=== PATIENT | male | born 1955 | race Caucasian/White ===

== ENCOUNTER 2020-10-04 14:24 | Emergency (ER) | payer MEDICAID, MEDICARE ==
[2020-10-04 14:44] LABS: BASE EXCESS ARTERIAL -1 mmol/L ((-2)-(+3)); BICARBONATE,ARTERIAL 22.5 mmol/L (22-26); O2 DELIVERY DEVICE ROOM AIR; O2 SATURATION ARTERIAL 91 % (95-100); PCO2 ARTERIAL 34 mmHg (35-45); PO2 ARTERIAL 68 mmHg (70-100)
[2020-10-04 14:45] LABS: ALLEN TEST PERFORMED
--- NOTE | 2020-10-04 14:46 | EDM.PDOC ---
ED HPI GENERAL MEDICAL PROBLEM - General Stated Complaint: CALL IN Time Seen by Provider: 10/04/20 14:40 Source of Information: Reports: Patient, Old Records, RN, RN Notes Reviewed History Limitations: Reports: No Limitations - History of Present Illness INITIAL COMMENTS - FREE TEXT/NARRATIVE: Patient presents to the ED via personal vehicle with complaints of shortness of breath. Chante the social science research assistant from [facility] called prior to the patient's arrival to notify the ED he was on his way via [facility] staff. Chante states he has not been taking his medications for about one week and is extremely "ill-a ppearing" to staff. Upon arrival to the ED the patient states he feel short of breath with a dull ache in his chest. He is unable to state how long he has felt short of breath or if he has taken any PRN medications for alleviation of this symptom. The patient is unable to state if he has had fever or shaking chills but notes "..I feel sweaty." He denies nausea and vomiting but does attest to diarrhea. He is oriented to person and place, he is disoriented to time and situation. - Related Data Allergies Allergy/AdvReac Type Severity Reaction Status Date / Time No Known Allergies Allergy Verified 05/10/15 09:12 Home Meds: Home Meds Acetaminophen [Acetaminophen ER] 650 mg PO Q8HR PRN 10/04/20 [History] Albuterol [Ventolin HFA] 2 puff INH Q6HR PRN 10/04/20 [History] Aspirin [Aspirin EC] 81 mg PO DAILY 10/04/20 [History] Benztropine [Cogentin] 0.5 mg PO BID 10/04/20 [History] Budesonide/Formoterol Fumarate [Symbicort 80-4.5 MCG] 2 puff INH BID 10/04/20 [History] Docusate Sodium 100 mg PO BID PRN 10/04/20 [History] Finasteride [Proscar] 5 mg PO DAILY 10/04/20 [History] Loratadine [Claritin] 10 mg PO ASDIRECTED PRN 10/04/20 [History] Meclizine [Antivert] 20 mg PO DAILY 10/04/20 [History] Multivitamin with Minerals [Multivitamins with Minerals] 1 each PO DAILY 10/04/20 [History] Omeprazole 20 mg PO DAILY 10/04/20 [History] QUEtiapine Fumarate [Seroquel] 150 mg PO BEDTIME 10/04/20 [History] Rosuvastatin [Crestor] 5 mg PO DAILY 10/04/20 [History] Sodium Chloride [Saline Mist] 1 applic NASBOTH ASDIRECTED PRN 10/04/20 [History] Tamsulosin [Tamsulosin 24 Hr] 0.4 mg PO BEDTIME 10/04/20 [History] Tiotropium [Spiriva HandiHaler] 18 mcg INH DAILY 10/04/20 [History] haloperidoL [Haldol] 15 mg PO BEDTIME 10/04/20 [History] Past Medical History - Past Health History Medical/Surgical History: Denies Medical/Surgical History Social & Family History - Caffeine Use Caffeine Use: Reports: Coffee, Soda ED ROS GENERAL - Review of Systems Review Of Systems: Comprehensive ROS is negative, except as noted in HPI. ED EXAM, GENERAL - Physical Exam Exam: See Below Exam Limited By: Altered Mental Status (Oriented to self and place, only) General Appearance: Alert, Moderate Distress, Thin Eye Exam: Bilateral Eye: EOMI, Normal Inspection, PERRL (3mm) Ears: Normal External Exam, Hearing Grossly Normal Nose: Nasal Tenderness, Clear Rhinorrhea. No: Nasal Swelling Throat/Mouth: Normal Inspection, Normal Voice, No Airway Compromise. No: Normal Oropharynx (Dry mucous membranes) Head: Atraumatic, Normocephalic Neck: Normal Inspection, Supple, Non-Tender, Full Range of Motion. No: Lymphadenopathy (L), Lymphadenopathy (R) Respiratory/Chest: Respiratory Distress, Rhonchi, Accessory Muscle Use. No: Wheezing Cardiovascular: No Edema, No Gallop, No JVD, No Murmur, No Rub, Tachycardia Peripheral Pulses: 1+: Dorsalis Pedis (L), Dorsalis Pedis (R), 2+: Radial (L), Radial (R) GI/Abdominal: Normal Bowel Sounds, Soft, Non-Tender, No Distention, No Mass, Pelvis Stable (Male) Exam: Deferred Rectal (Males) Exam: Deferred Back Exam: Normal Inspection, Full Range of Motion Extremities: Normal Inspection, Normal Range of Motion, No Pedal Edema, Normal Capillary Refill Neurological: Alert, Oriented, Slow to Respond Psychiatric: Depressed Mood, Flat Affect Skin Exam: Diaphoretic, Pallor. No: Ecchymosis, Erythema, Mottled, Petechiae #1 Interpretation EKG Date: 10/04/20 Time: 14:29 Rhythm: Other (Sinus Tachycardia) Rate (Beats/Min): 103 Florence: RAD-Right Florence Deviation P-Wave: Present QRS: Normal ST-T: Normal QT: Normal Comparison: No Change EKG Interpretation Comments: Sinus Tachycardia; RAD; No evidence of acute ischemia Course - Vital Signs Last Recorded V/S: Last Vital Signs Temp 98.1 F 10/04/20 14:40 Pulse 96 10/04/20 14:40 Resp 36 H 10/04/20 14:40 BP 143/74 H 10/04/20 14:40 Pulse Ox 89 L 10/04/20 14:40 - Orders/Labs/Meds Labs: Laboratory Tests 10/04/20 10/04/20 10/04/20 Range/Units 14:21 14:30 14:30 WBC 8.8 (5.0-10.0) 10^3/uL RBC 3.66 L (4.6-6.2) 10^6/uL Hgb 11.1 L D (14.0-18.0) g/dL Hct 33.0 L (40.0-54.0) % MCV 90.2 (80-100) fL MCH 30.3 (27.0-34.0) pg MCHC 33.6 (33.0-35.0) g/dL Plt Count 230 (150-450) 10^3/uL Neut % (Auto) 75.0 (42.2-75.2) % Lymph % (Auto) 11.8 L (20.5-50.1) % [place] % (Auto) 12.2 H (2-8) % Eos % (Auto) 0.9 L (1.0-3.0) % Baso % (Auto) 0.1 (0.0-1.0) % Add Manual Diff Yes Neutrophils % (Manual) 75 (42-75) % Band Neutrophils % 1 % Lymphocytes % (Manual) 16 L (20-50) % Monocytes % (Manual) 7 (2-8) % Eosinophils % (Manual) 1 (1-3) % D-Dimer, Quantitative 3610 H (0-400) ng/mL ABG pH (7.35-7.45) ABG pCO2 (35-45) mmHg ABG pO2 (70-100) mmHg ABG HCO3 (22-26) mmol/L ABG O2 Saturation (95-100) % ABG Base Excess ((-2)-(+3)) mmol/L Abdifatah Test O2 Delivery Device Sodium (136-145) mmol/L Potassium (3.5-5.1) mmol/L Chloride (98-107) mmol/L Carbon Dioxide (21-32) mmol/L Anion Gap (7-13) mEq/L BUN (7-18) mg/dL Creatinine (0.70-1.30) mg/dL Est Cr Clr Drug Dosing Estimated GFR (MDRD) BUN/Creatinine Ratio (No establ ref range) Glucose (74-99) mg/dL Lactic Acid (0.4-2.0) mmol/L Calcium (8.5-10.1) mg/dL Magnesium (1.8-2.4) mg/dL Total Bilirubin (0.2-1.0) mg/dL AST (15-37) U/L ALT (16-63) U/L Alkaline Phosphatase (46-116) U/L Troponin I (0.000-0.056) ng/mL B-Natriuretic Peptide (0-100) pg/ml Total Protein (6.4-8.2) g/dL Albumin (3.4-5.0) g/dL Globulin Albumin/Globulin Ratio Ethyl Alcohol (0) mg/dL SARS-CoV-2 RNA (CARRIE) Positive H (NEGATIVE) 10/04/20 10/04/20 10/04/20 Range/Units 14:30 14:30 14:37 WBC (5.0-10.0) 10^3/uL RBC (4.6-6.2) 10^6/uL Hgb (14.0-18.0) g/dL Hct (40.0-54.0) % MCV (80-100) fL MCH (27.0-34.0) pg MCHC (33.0-35.0) g/dL Plt Count (150-450) 10^3/uL Neut % (Auto) (42.2-75.2) % Lymph % (Auto) (20.5-50.1) % [place] % (Auto) (2-8) % Eos % (Auto) (1.0-3.0) % Baso % (Auto) (0.0-1.0) % Add Manual Diff Neutrophils % (Manual) (42-75) % Band Neutrophils % % Lymphocytes % (Manual) (20-50) % Monocytes % (Manual) (2-8) % Eosinophils % (Manual) (1-3) % D-Dimer, Quantitative (0-400) ng/mL ABG pH 7.44 (7.35-7.45) ABG pCO2 34 L (35-45) mmHg ABG pO2 68 L (70-100) mmHg ABG HCO3 22.5 (22-26) mmol/L ABG O2 Saturation 91 L (95-100) % ABG Base Excess -1 ((-2)-(+3)) mmol/L Abdifatah Test Performed O2 Delivery Device Room air Sodium 142 (136-145) mmol/L Potassium 3.6 (3.5-5.1) mmol/L Chloride 108 H (98-107) mmol/L Carbon Dioxide 24 (21-32) mmol/L Anion Gap 13.6 H (7-13) mEq/L BUN 25 H (7-18) mg/dL Creatinine 0.97 (0.70-1.30) mg/dL Est Cr Clr Drug Dosing TNP Estimated GFR (MDRD) > 60 BUN/Creatinine Ratio 25.8 (No establ ref range) Glucose 123 H (74-99) mg/dL Lactic Acid 1.3 (0.4-2.0) mmol/L Calcium 8.6 (8.5-10.1) mg/dL Magnesium 2.3 (1.8-2.4) mg/dL Total Bilirubin 0.4 (0.2-1.0) mg/dL AST 33 (15-37) U/L ALT 44 (16-63) U/L Alkaline Phosphatase 88 (46-116) U/L Troponin I 0.168 H* (0.000-0.056) ng/mL B-Natriuretic Peptide 86 (0-100) pg/ml Total Protein 6.6 (6.4-8.2) g/dL Albumin 2.2 L (3.4-5.0) g/dL Globulin 4.4 Albumin/Globulin Ratio 0.50 Ethyl Alcohol < 3 (0) mg/dL SARS-CoV-2 RNA (CARRIE) (NEGATIVE) Meds: Medications Discontinued Medications Generic Name Dose Route Start Last Admin Trade Name Freq PRN Reason Stop Dose Admin Heparin Sodium (Porcine) 4,000 units 10/04/20 15:19 10/04/20 15:45 Heparin Sodium IVPUSH 10/04/20 15:20 4,000 units .BOLUS ONE Administration Heparin Sodium/Sodium Chloride 25,000 units in 500 mls @ 19.726 mls/hr 10/04/20 15:30 10/04/20 15:47 Heparin 25,000 Units In 1/2 Ns 500 Ml IV 12 units/kg/hr TITRATE ELADIO 19.726 mls/hr Administration Protocol 12 UNITS/KG/HR Departure - Departure Time of Disposition: 15:49 Disposition: DC/Tfer to Acute Hospital 02 Condition: Good, Fair Clinical Impression: NSTEMI (non-ST elevated myocardial infarction), COVID-19 virus infection - Discharge Information Referrals: PCP,None [Primary Care Provider] - Forms: Interfacility Transfer KARIME
[2020-10-04 15:02] LABS: ANION GAP 13.6 mEq/L (7-13); CHLORIDE,CL 108 mmol/L (98-107); SODIUM,NA 142 mmol/L (136-145)
[2020-10-04] MEDS ORDERED: Heparin Sodium 5,000 Units/ML Vial IVPUSH ONE (15:19)
[2020-10-04] MEDS ORDERED: Heparin Sodium/0.45% NaCl 25,000 UNITS/500 ML BAG IV SCH (15:30)
[2020-10-04 15:38] VITALS: BP 143/74; PULSE 96
== END 2020-10-04 16:50 ==
LOC: DL.ED 14:24
DX: U07.1 COVID-19 (principal); I21.4 Non-ST elevation (NSTEMI) myocardial infarction; Z79.82 Long term (current) use of aspirin; Z79.899 Other long term (current) drug therapy
CPT/HCPCS: 36415; 36600; 80053; 80307; 82803; 83605; 83735; 83880; 84484; 85025; 85379; 93005; 96365; 99285; J1644; U0002

== ENCOUNTER 2020-12-21 16:43 | Emergency (ER) | payer MEDICARE ==
--- NOTE | 2020-12-21 17:56 | EDM.PDOC ---
ED HPI GENERAL MEDICAL PROBLEM - General Chief Complaint: Gastrointestinal Problem Stated Complaint: CHOKING,VOMITING Time Seen by Provider: 12/21/20 17:40 Source of Information: Reports: Patient History Limitations: Reports: No Limitations - History of Present Illness INITIAL COMMENTS - FREE TEXT/NARRATIVE: This 65 yo male patient reports to the ED due to a sensation of choking for 2 days. The patient reports he has been choking all night. The patient reports he had a cough that started yesterday and he has not been feeling well. The patient reports he has not been eating well for the past couple of days. The patient reports when he started to feel sick he slept. Onset Date: 12/20/20 Duration: Constant Location: Reports: Neck, Chest Quality: Reports: Other Severity: Mild Improves with: Reports: None Worsens with: Reports: Immobilization Context: Reports: Other Associated Symptoms: Reports: No Other Symptoms - Related Data Allergies Allergy/AdvReac Type Severity Reaction Status Date / Time No Known Allergies Allergy Verified 05/10/15 09:12 Home Meds: Home Meds Acetaminophen [Acetaminophen ER] 650 mg PO Q8HR PRN 10/04/20 [History] Albuterol [Ventolin HFA] 2 puff INH Q6HR PRN 10/04/20 [History] Aspirin [Aspirin EC] 81 mg PO DAILY 10/04/20 [History] Benztropine [Cogentin] 0.5 mg PO BID 10/04/20 [History] Budesonide/Formoterol Fumarate [Symbicort 80-4.5 MCG] 2 puff INH BID 10/04/20 [History] Docusate Sodium 100 mg PO BID PRN 10/04/20 [History] Finasteride [Proscar] 5 mg PO DAILY 10/04/20 [History] Loratadine [Claritin] 10 mg PO ASDIRECTED PRN 10/04/20 [History] Meclizine [Antivert] 20 mg PO DAILY 10/04/20 [History] Multivitamin with Minerals [Multivitamins with Minerals] 1 each PO DAILY 10/04/20 [History] Omeprazole 20 mg PO DAILY 10/04/20 [History] QUEtiapine Fumarate [Seroquel] 150 mg PO BEDTIME 10/04/20 [History] Rosuvastatin [Crestor] 5 mg PO DAILY 12/10/20 [History] Sodium Chloride [Saline Mist] 1 applic NASBOTH ASDIRECTED PRN 10/04/20 [History] Tamsulosin [Tamsulosin 24 Hr] 0.4 mg PO BEDTIME 10/04/20 [History] Tiotropium [Spiriva HandiHaler] 18 mcg INH DAILY 10/04/20 [History] haloperidoL [Haldol] 15 mg PO BEDTIME 10/04/20 [History] Past Medical History - Past Health History Medical/Surgical History: Denies Medical/Surgical History Social & Family History - Family History Family Medical History: No Pertinent Family History - Caffeine Use Caffeine Use: Reports: Coffee ED ROS GENERAL - Review of Systems Review Of Systems: Comprehensive ROS is negative, except as noted in HPI. ED EXAM, GENERAL - Physical Exam Exam: See Below Exam Limited By: No Limitations General Appearance: Alert, WD/WN, Anxious, Mild Distress Eye Exam: Bilateral Eye: EOMI, Normal Inspection, PERRL Ears: Normal External Exam, Normal Canal, Hearing Grossly Normal, Normal TMs Nose: Normal Inspection, Normal Mucosa, No Blood Throat/Mouth: Other (posterior pharynx is erythematous) Head: Atraumatic, Normocephalic Neck: Normal Inspection, Supple, Non-Tender, Full Range of Motion Respiratory/Chest: Decreased Breath Sounds Cardiovascular: Normal Peripheral Pulses, Regular Rate, Rhythm, No Edema, No Gallop, No JVD, No Murmur, No Rub GI/Abdominal: Normal Bowel Sounds, Soft, Non-Tender, No Organomegaly, No Distention, No Abnormal Bruit, No Mass (Male) Exam: Deferred Rectal (Males) Exam: Deferred Back Exam: Normal Inspection, Full Range of Motion, NT Extremities: Normal Inspection, Normal Range of Motion, Non-Tender, Normal Capillary Refill, No Pedal Edema Neurological: Alert, Oriented, CN II-XII Intact, Normal Cognition, Normal Gait, Normal Reflexes, No Motor/Sensory Deficits Psychiatric: Normal Affect, Normal Mood Skin Exam: Warm, Dry, Intact, Normal Color, No Rash Lymphatic: No Adenopathy Course - Vital Signs Last Recorded V/S: Last Vital Signs Temp 36.4 C 12/21/20 17:20 Pulse 87 12/21/20 17:20 Resp 16 12/21/20 17:20 BP 149/72 H 12/21/20 17:20 Pulse Ox 97 12/21/20 17:20 - Orders/Labs/Meds Orders: Active Orders 24 hr Category Date Time Status EKG Documentation Completion [RC] STAT Care 12/21/20 17:24 Ordered DRUG SCREEN URINE BIORAD [URCHEM] Stat Lab 12/21/20 17:25 Ordered UA RFX SURESH AND CULT IF INDIC [URIN] Urgent Lab 12/21/20 17:25 Ordered Labs: Laboratory Tests 12/21/20 12/21/20 12/21/20 Range/Units 17:53 17:53 17:53 WBC 7.9 (5.0-10.0) 10^3/uL RBC 3.68 L (4.6-6.2) 10^6/uL Hgb 11.2 L (14.0-18.0) g/dL Hct 33.7 L (40.0-54.0) % MCV 91.6 (80-100) fL MCH 30.4 (27.0-34.0) pg MCHC 33.2 (33.0-35.0) g/dL Plt Count 229 (150-450) 10^3/uL Neut % (Auto) 68.6 (42.2-75.2) % Lymph % (Auto) 15.5 L (20.5-50.1) % Floyd % (Auto) 13.1 H (2-8) % Eos % (Auto) 2.7 (1.0-3.0) % Baso % (Auto) 0.1 (0.0-1.0) % Sodium 137 (136-145) mmol/L Potassium 4.2 (3.5-5.1) mmol/L Chloride 102 (98-107) mmol/L Carbon Dioxide 28 (21-32) mmol/L Anion Gap 11.2 (7-13) mEq/L BUN 16 (7-18) mg/dL Creatinine 0.75 (0.70-1.30) mg/dL Est Cr Clr Drug Dosing 95.58 mL/min Estimated GFR (MDRD) > 60 BUN/Creatinine Ratio 21.3 (No establ ref range) Glucose 102 H (74-99) mg/dL Calcium 8.4 L (8.5-10.1) mg/dL Magnesium 2.2 (1.8-2.4) mg/dL Total Bilirubin 0.3 (0.2-1.0) mg/dL AST 12 L (15-37) U/L ALT 19 (16-63) U/L Alkaline Phosphatase 122 H (46-116) U/L Troponin I < 0.017 (0.000-0.056) ng/mL Total Protein 6.4 (6.4-8.2) g/dL Albumin 3.1 L (3.4-5.0) g/dL Globulin 3.3 Albumin/Globulin Ratio 0.94 Salicylates 2.9 (2.8-20(Therapeutic)) mg/dL Acetaminophen 0 L (10-30 (Therapeutic)) ug/mL Ethyl Alcohol < 3 (0) mg/dL Departure - Departure Time of Disposition: 19:03 Disposition: Home, Self-Care 01 Condition: Fair Clinical Impression: URI (upper respiratory infection) Qualifiers: URI type: unspecified URI Qualified Code(s): J06.9 - Acute upper respiratory infection, unspecified - Discharge Information *PRESCRIPTION DRUG MONITORING PROGRAM REVIEWED*: Not Applicable *COPY OF PRESCRIPTION DRUG MONITORING REPORT IN PATIENT SETH: Not Applicable Instructions: Upper Respiratory Infection, Adult, [id number] Forms: ED Department Discharge Care Plan Goals: The patient was advised of the examination, lab, EKG and x-ray results during the visit. The patient was encouraged to take over the counter medications as directed for temporary symptom relief. If the patient has any additional symptoms or concerns, the patient should either return to the emergency department or visit his primary care facility. Sepsis Event Note (ED) - Focused Exam Vital Signs: Vital Signs Temp Pulse Resp BP Pulse Ox 12/21/20 17:20 36.4 C 87 16 149/72 H 97 - My Orders Last 24 Hours: My Active Orders 12/21/20 17:24 EKG Documentation Completion [RC] STAT 12/21/20 17:25 DRUG SCREEN URINE BIORAD [URCHEM] Stat UA RFX SURESH AND CULT IF INDIC [URIN] Urgent - Assessment/Plan Last 24 Hours: My Active Orders 12/21/20 17:24 EKG Documentation Completion [RC] STAT 12/21/20 17:25 DRUG SCREEN URINE BIORAD [URCHEM] Stat UA RFX SURESH AND CULT IF INDIC [URIN] Urgent
--- NOTE | 2020-12-21 17:57 | CR ---
PROCEDURE INFORMATION: Exam: XR Chest Exam date and time: 12/21/2020 5:34 PM Age: 65 years old Clinical indication: Cough TECHNIQUE: Imaging protocol: XR of the chest Views: 2 views. COMPARISON: No relevant prior studies available. FINDINGS: Lungs: Unremarkable. No consolidation. Pleural spaces: Unremarkable. No pleural effusion. No pneumothorax. Heart/Mediastinum: Unremarkable. No cardiomegaly. Bones/joints: Unremarkable. IMPRESSION: No acute findings.
[2020-12-21 17:58] VITALS: BP 149/72; PULSE 87
[2020-12-21 18:23] LABS: ANION GAP 11.2 mEq/L (7-13); CHLORIDE,CL 102 mmol/L (98-107); SODIUM,NA 137 mmol/L (136-145)
[2020-12-21 18:27] LABS: ACETAMINOPHEN 0 ug/mL (10-30 (Therapeutic))
== END 2020-12-21 19:13 | disposition home or self-care (01) ==
LOC: DL.ED 16:43
DX: J06.9 Acute upper respiratory infection, unspecified (principal); Z79.82 Long term (current) use of aspirin; Z79.899 Other long term (current) drug therapy
CPT/HCPCS: 36415; 71046; 80053; 80143; 80179; 80307; 83735; 84484; 85025; 93005; 99282; 99284-25

== ENCOUNTER 2021-10-27 07:33 | Emergency (ER) | payer MEDICARE, MEDICAID ==
[2021-10-27] MEDS ORDERED: Acetaminophen 500 MG Tab PO ONE (08:18)
[2021-10-27] MEDS ORDERED: Ibuprofen 800 MG Tab PO ONE (08:19)
--- NOTE | 2021-10-27 08:21 | EDM.PDOC ---
ED HPI GENERAL MEDICAL PROBLEM - General Chief Complaint: Fever Stated Complaint: diarrhea 3 wks / heavy smokers cough / not eating Time Seen by Provider: 10/27/21 08:20 Source of Information: Reports: Patient, Old Records, RN, RN Notes Reviewed History Limitations: Reports: No Limitations - History of Present Illness INITIAL COMMENTS - FREE TEXT/NARRATIVE: Pt presents to ER with c/o fever and body aches x1 day. Pt states he has had diarrhea for about 3 weeks, but he gets diarrhea several times a year. Denies chest pain, abdominal pain, or shortness of breath. Admits to cough. Onset: Sudden Duration: Day(s): (1) Location: Reports: Generalized Quality: Reports: Ache Severity: Moderate Improves with: Reports: None Worsens with: Reports: None Associated Symptoms: Reports: No Other Symptoms - Related Data Allergies Allergy/AdvReac Type Severity Reaction Status Date / Time No Known Allergies Allergy Verified 03/26/21 10:31 Home Meds: Home Meds Albuterol [Ventolin HFA] 2 puff INH Q6HR PRN 10/04/20 [History] Benztropine [Cogentin] 0.5 mg PO BID 10/04/20 [History] Budesonide/Formoterol Fumarate [Symbicort 80-4.5 MCG] 2 puff INH BID 10/04/20 [History] Finasteride [Proscar] 5 mg PO DAILY 10/04/20 [History] Omeprazole 20 mg PO BID 10/04/20 [History] QUEtiapine Fumarate [Seroquel] 200 mg PO BEDTIME 10/04/20 [History] Rosuvastatin [Crestor] 5 mg PO DAILY 10/04/20 [History] Tamsulosin [Tamsulosin 24 Hr] 0.4 mg PO BEDTIME 10/04/20 [History] Tiotropium [Spiriva HandiHaler] 18 mcg INH BID 10/04/20 [History] haloperidoL [Haldol] 10 mg PO BID 10/04/20 [History] Apixaban [Eliquis] 5 mg PO BID 02/25/21 [History] Folic Acid 1 mg PO DAILY 02/25/21 [History] Past Medical History - Past Health History Medical/Surgical History: Denies Medical/Surgical History HEENT History: Reports: None Cardiovascular History: Reports: Blood Clots/VTE/DVT, High Cholesterol, ME, Other (See Below) Other Cardiovascular History: pulmonary embolism Respiratory History: Reports: COPD, Other (See Below) Other Respiratory History: pneumonia due to covid 19 virus Gastrointestinal History: Reports: None Genitourinary History: Reports: None Musculoskeletal History: Reports: None Neurological History: Reports: None Psychiatric History: Reports: Schizophrenia Endocrine/Metabolic History: Reports: None Hematologic History: Reports: Anemia, Iron Deficiency Immunologic History: Reports: None Oncologic (Cancer) History: Reports: None Dermatologic History: Reports: None - Infectious Disease History Infectious Disease History: Reports: Novel Coronavirus - Past Surgical History Head Surgeries/Procedures: Reports: None HEENT Surgical History: Reports: None Cardiovascular Surgical History: Reports: None Respiratory Surgical History: Reports: None GI Surgical History: Reports: None Male Surgical History: Reports: None Endocrine Surgical History: Reports: None Neurological Surgical History: Reports: None Dermatological Surgical History: Reports: None Social & Family History - Family History Family Medical History: No Pertinent Family History - Caffeine Use Caffeine Use: Reports: Coffee Caffeine Use Comment: 3 cups daily - Living Situation & Occupation Living situation: Reports: Other (with friend) Occupation: Disabled ED ROS GENERAL - Review of Systems Review Of Systems: Comprehensive ROS is negative, except as noted in HPI. ED EXAM, GENERAL - Physical Exam Exam: See Below Exam Limited By: No Limitations General Appearance: Alert, WD/WN, No Apparent Distress Eye Exam: Bilateral Eye: Normal Inspection Nose: Clear Rhinorrhea Throat/Mouth: Normal Lips, Normal Voice, No Airway Compromise, Other (Dry oral mucosa) Head: Atraumatic, Normocephalic Neck: Normal Inspection Respiratory/Chest: No Respiratory Distress, No Accessory Muscle Use, Decreased Breath Sounds, Other (Dry cough). No: Crackles, Rales, Rhonchi, Wheezing Cardiovascular: Regular Rate, Rhythm, No Edema GI/Abdominal: Normal Bowel Sounds, Soft, Non-Tender, No Organomegaly, No Distention, No Abnormal Bruit, No Mass Back Exam: Normal Inspection Extremities: Normal Inspection Neurological: Alert, Oriented, No Motor/Sensory Deficits Psychiatric: Normal Mood Skin Exam: Warm, Dry, Intact, Normal Color, No Rash Course - Vital Signs Last Recorded V/S: Last Vital Signs Temp 102.4 F H 10/27/21 08:42 Pulse 90 10/27/21 08:05 Resp 20 10/27/21 08:05 BP 132/65 10/27/21 08:05 Pulse Ox 93 L 10/27/21 08:05 - Orders/Labs/Meds Orders: Active Orders 24 hr Category Date Time Status Peripheral IV Care [RC] . DIRECTED Care 10/27/21 08:24 Active CULTURE BLOOD [BC] Stat Lab 10/27/21 08:20 Received CULTURE BLOOD [BC] Stat Lab 10/27/21 08:24 Ordered UA RFX SURESH AND CULT IF INDIC [URIN] Stat Lab 10/27/21 08:23 Ordered Lactated Ringers [Ringers, Lactated] 1,000 ml Med 10/27/21 08:26 Active IV .BOLUS Sodium Chloride 0.9% [Saline Flush] Med 10/27/21 08:22 Active 10 ml FLUSH ASDIRECTED PRN Blood Culture x2 Reflex Set [OM.PC] Stat Oth 10/27/21 08:24 Ordered Peripheral IV Insertion Adult [OM.PC] Stat Oth 10/27/21 08:23 Ordered Medication Orders Lactated Ringer's (Ringers, Lactated) 1,000 mls @ 999 mls/hr IV .BOLUS ONE Stop: 10/27/21 09:26 Last Admin: 10/27/21 08:42 Dose: 999 mls/hr Documented by: PAVAN Sodium Chloride (Sodium Chloride 0.9% 10 Ml Syringe) 10 ml FLUSH ASDIRECTED PRN PRN Reason: Keep Vein Open Last Admin: 10/27/21 08:42 Dose: 10 ml Documented by: PAVAN Labs: Laboratory Tests 10/27/21 10/27/21 10/27/21 Range/Units 08:15 08:20 08:20 WBC 7.0 (5.0-10.0) 10^3/uL RBC 3.95 L (4.6-6.2) 10^6/uL Hgb 11.9 L (14.0-18.0) g/dL Hct 35.5 L (40.0-54.0) % MCV 89.9 (80-100) fL MCH 30.1 (27.0-34.0) pg MCHC 33.5 (33.0-35.0) g/dL Plt Count 168 (150-450) 10^3/uL Neut % (Auto) 69.2 (42.2-75.2) % Lymph % (Auto) 15.8 L (20.5-50.1) % Lawrence % (Auto) 14.8 H (2-8) % Eos % (Auto) 0.1 L (1.0-3.0) % Baso % (Auto) 0.1 (0.0-1.0) % Sodium 135 L (136-145) mmol/L Potassium 4.0 (3.5-5.1) mmol/L Chloride 98 (98-107) mmol/L Carbon Dioxide 26 (21-32) mmol/L Anion Gap 15.0 H (7-13) mEq/L BUN 16 (7-18) mg/dL Creatinine 1.12 (0.70-1.30) mg/dL Est Cr Clr Drug Dosing 65.18 mL/min Estimated GFR (MDRD) > 60 BUN/Creatinine Ratio 14.3 (No establ ref range) Glucose 102 H (70-99) mg/dL Lactic Acid (0.4-2.0) mmol/L Calcium 8.2 L (8.5-10.1) mg/dL Total Bilirubin 0.4 (0.2-1.0) mg/dL AST 21 (15-37) U/L ALT 21 (16-63) U/L Alkaline Phosphatase 103 (46-116) U/L C-Reactive Protein 2.9 H (0.0-0.9) mg/dL Total Protein 6.7 (6.4-8.2) g/dL Albumin 3.2 L (3.4-5.0) g/dL Globulin 3.5 Albumin/Globulin Ratio 0.91 Influenza Type A RNA Positive H (NEGATIVE) Influenza Type B RNA Negative (NEGATIVE) SARS-CoV-2 RNA (CARRIE) Negative (NEGATIVE) 10/27/21 Range/Units 08:20 WBC (5.0-10.0) 10^3/uL RBC (4.6-6.2) 10^6/uL Hgb (14.0-18.0) g/dL Hct (40.0-54.0) % MCV (80-100) fL MCH (27.0-34.0) pg MCHC (33.0-35.0) g/dL Plt Count (150-450) 10^3/uL Neut % (Auto) (42.2-75.2) % Lymph % (Auto) (20.5-50.1) % Lawrence % (Auto) (2-8) % Eos % (Auto) (1.0-3.0) % Baso % (Auto) (0.0-1.0) % Sodium (136-145) mmol/L Potassium (3.5-5.1) mmol/L Chloride (98-107) mmol/L Carbon Dioxide (21-32) mmol/L Anion Gap (7-13) mEq/L BUN (7-18) mg/dL Creatinine (0.70-1.30) mg/dL Est Cr Clr Drug Dosing mL/min Estimated GFR (MDRD) BUN/Creatinine Ratio (No establ ref range) Glucose (70-99) mg/dL Lactic Acid 0.7 (0.4-2.0) mmol/L Calcium (8.5-10.1) mg/dL Total Bilirubin (0.2-1.0) mg/dL AST (15-37) U/L ALT (16-63) U/L Alkaline Phosphatase (46-116) U/L C-Reactive Protein (0.0-0.9) mg/dL Total Protein (6.4-8.2) g/dL Albumin (3.4-5.0) g/dL Globulin Albumin/Globulin Ratio Influenza Type A RNA (NEGATIVE) Influenza Type B RNA (NEGATIVE) SARS-CoV-2 RNA (CARRIE) (NEGATIVE) Meds: Medications Generic Name Dose Route Start Last Admin Trade Name Freq PRN Reason Stop Dose Admin Lactated Ringer's 1,000 mls @ 999 mls/hr 10/27/21 08:26 10/27/21 08:42 Ringers, Lactated IV 10/27/21 09:26 999 mls/hr .BOLUS ONE Administration Sodium Chloride 10 ml 10/27/21 08:22 10/27/21 08:42 Sodium Chloride 0.9% 10 Ml Syringe FLUSH 10 ml ASDIRECTED PRN Administration Keep Vein Open Discontinued Medications Generic Name Dose Route Start Last Admin Trade Name Freq PRN Reason Stop Dose Admin Acetaminophen 1,000 mg 10/27/21 08:18 10/27/21 08:42 Acetaminophen 500 Mg Tab PO 10/27/21 08:19 1,000 mg ONETIME ONE Administration Diphenoxylate HCl/Atropine 2 tab 10/27/21 08:38 10/27/21 08:41 Atropine/Diphenoxylate 0.025-2.5 Mg Tab PO 10/27/21 08:39 2 tab ONETIME ONE Administration Ibuprofen 800 mg 10/27/21 08:19 10/27/21 08:41 Ibuprofen 800 Mg Tab PO 10/27/21 08:20 800 mg ONETIME ONE Administration Departure - Departure Time of Disposition: 09:25 Disposition: Home, Self-Care 01 Condition: Good Clinical Impression: Influenza A - Discharge Information *PRESCRIPTION DRUG MONITORING PROGRAM REVIEWED*: Not Applicable *COPY OF PRESCRIPTION DRUG MONITORING REPORT IN PATIENT SETH: Not Applicable Instructions: Influenza, Adult, [id number], Fever, Adult, [id number], Dehydration, Adult, [id number] Forms: ED Department Discharge Additional Instructions: Rx: Tamiflu 75mg Rx: Lomotil Use Tylenol (Acetaminophen) and/or Ibuprofen (Motrin/Advil) as needed for fevers or body aches. Follow directions on label for dosing and precautions. Drink plenty of water, Pedialyte, or Gatorade. Follow up in clinic or return to ER if you develop any difficulty breathing. Sepsis Event Note (ED) - Focused Exam Vital Signs: Vital Signs Temp Temp Pulse Resp BP Pulse Ox 10/27/21 08:42 102.4 F H 10/27/21 08:41 102.4 F H 10/27/21 08:05 102.4 F H 90 20 132/65 93 L - My Orders Last 24 Hours: My Active Orders 10/27/21 08:20 CULTURE BLOOD [BC] Stat 10/27/21 08:22 Sodium Chloride 0.9% [Saline Flush] 10 ml FLUSH ASDIRECTED PRN 10/27/21 08:23 UA RFX SURESH AND CULT IF INDIC [URIN] Stat Peripheral IV Insertion Adult [OM.PC] Stat 10/27/21 08:24 Peripheral IV Care [RC] . DIRECTED CULTURE BLOOD [BC] Stat Blood Culture x2 Reflex Set [OM.PC] Stat 10/27/21 08:26 Lactated Ringers [Ringers, Lactated] 1,000 ml IV .BOLUS - Assessment/Plan Last 24 Hours: My Active Orders 10/27/21 08:20 CULTURE BLOOD [BC] Stat 10/27/21 08:22 Sodium Chloride 0.9% [Saline Flush] 10 ml FLUSH ASDIRECTED PRN 10/27/21 08:23 UA RFX SURESH AND CULT IF INDIC [URIN] Stat Peripheral IV Insertion Adult [OM.PC] Stat 10/27/21 08:24 Peripheral IV Care [RC] . DIRECTED CULTURE BLOOD [BC] Stat Blood Culture x2 Reflex Set [OM.PC] Stat 10/27/21 08:26 Lactated Ringers [Ringers, Lactated] 1,000 ml IV .BOLUS
[2021-10-27] MEDS ORDERED: Sodium Chloride 0.9% 10 ML Syringe FLUSH PRN (08:22)
[2021-10-27] MEDS ORDERED: Lactated Ringers 1,000 ML IV ONE (08:26)
[2021-10-27] MEDS ORDERED: Atropine/Diphenoxylate 0.025-2.5 MG Tab PO ONE (08:38)
[2021-10-27 08:53] VITALS: BP 132/65; PULSE 90
[2021-10-27 08:54] LABS: CHLORIDE,CL 98 mmol/L (98-107); SODIUM,NA 135 mmol/L (136-145)
[2021-10-27 09:09] LABS: CORONAVIRUS COVID-19 NAA NEGATIVE (NEGATIVE)
== END 2021-10-27 09:43 | disposition home or self-care (01) ==
LOC: DL.ED 07:33
DX: J10.1 Influenza due to other identified influenza virus with other respiratory manifestations (principal); E78.00 Pure hypercholesterolemia, unspecified; J44.9 Chronic obstructive pulmonary disease, unspecified; I25.2 Old myocardial infarction; Z86.16 Personal history of COVID-19; Z79.899 Other long term (current) drug therapy; Z20.822 Contact with and (suspected) exposure to COVID-19
CPT/HCPCS: 0240U; 36415; 80053; 83605; 85025; 86140; 87040; 99284; A9270; J7120

== ENCOUNTER 2024-12-26 13:33 | Emergency (ER) | payer MEDICAID, MEDICARE ==
[2024-12-26] MEDS ORDERED: Sodium Chloride 0.9% 10 ML Syringe FLUSH PRN (13:51)
[2024-12-26 14:09] LABS: BASOPHILS PERCENT AUTO 0.2 % (0.0-1.0); EOSINOPHILS PERCENT AUTO 0.3 % (1.0-3.0); HEMATOCRIT 33.2 % (40.0-54.0); HEMOGLOBIN 10.9 g/dL (14.0-18.0); LYMPHOCYTES PERCENT AUTO 12.1 % (20.5-50.1); MEAN CORPUSCULAR HEMOGLOBIN 29.9 pg (27.0-34.0); MEAN CORPUSCULAR HGB CONC 32.8 g/dL (33.0-35.0); MEAN CORPUSCULAR VOLUME 91.2 fL (80-100); MONOCYTES PERCENT AUTO 11.9 % (2-8); NEUTROPHILS PERCENT AUTO 75.5 % (42.2-75.2); PLATELET COUNT,PLT 179 10^3/uL (150-450); RED BLOOD CELL COUNT 3.64 10^6/uL (4.6-6.2); WHITE BLOOD CELL COUNT,WBC 6.1 10^3/uL (5.0-10.0)
[2024-12-26 14:36] LABS: ALANINE AMINOTRANSFERASE,ALT 18 U/L (16-63); ALBUMIN 2.9 g/dL (3.4-5.0); ALKALINE PHOSPHATASE 105 U/L (46-116); ANION GAP 13.1 mEq/L (7-13); ASPARTATE AMNIOTRANSFERASE,AST 16 U/L (15-37); BILIRUBIN TOTAL 0.4 mg/dL (0.2-1.0); BLOOD UREA NITROGEN,BUN 14 mg/dL (7-18); BUN/CREATININE RATIO 13.2 (No establ ref range); CALCIUM 8.5 mg/dL (8.5-10.1); CARBON DIOXIDE,CO2 26 mmol/L (21-32); CHLORIDE,CL 102 mmol/L (98-107); CREATININE 1.06 mg/dL (0.70-1.30); GLUCOSE RANDOM 114 mg/dL (70-99); POTASSIUM,K 4.1 mmol/L (3.5-5.1); PROTEIN TOTAL,TP 6.5 g/dL (6.4-8.2); SODIUM,NA 137 mmol/L (136-145)
[2024-12-26 14:37] LABS: A/G RATIO 0.81; ESTIMATED GFR 75 mL/min (>=60)
[2024-12-26] MEDS: Acetaminophen 500 MG Tab PO ONE (15:39)
[2024-12-26] MEDS: Ibuprofen 600 MG Tab PO ONE (15:40)
[2024-12-26 15:57] VITALS: BP 153/98; PULSE 91
== END 2024-12-26 15:57 | disposition home or self-care (01) ==
LOC: DL.ED 13:33
DX: B34.9 Viral infection, unspecified (principal); I25.2 Old myocardial infarction; E78.00 Pure hypercholesterolemia, unspecified; J44.9 Chronic obstructive pulmonary disease, unspecified; Z79.899 Other long term (current) drug therapy; Z79.51 Long term (current) use of inhaled steroids; Z79.01 Long term (current) use of anticoagulants; Z86.16 Personal history of COVID-19
CPT/HCPCS: 36415; 71045; 80053; 85025; 87428; 99283; 99284; A9270